=== PATIENT | male | born 1950 | race Caucasian/White ===

== ENCOUNTER 2018-07-27 06:47 | Emergency (ER) | payer OTHER ==
[2018-07-27 07:05] VITALS: BP 126/86; TEMP 97.1; BMI 28.5
[2018-07-27] MEDS ORDERED: DUONEB NEB STA (07:06)
[2018-07-27] MEDS ORDERED: SODIUM CHLORIDE 1,000 ML IV STA (07:21)
--- NOTE | 2018-07-27 08:10 | CT ---
EXAM: CT BRAIN HISTORY: Altered mental status TECHNIQUE: CT brain without intravenous contrast. 5-mm axial sections with Reformations. COMPARISON: None FINDINGS: There is mild generalized atrophy. There is at least mild periventricular and deep white matter low attenuation which although nonspecific is suggestive of chronic microvascular ischemic change. Brain otherwise is unremarkable without evidence of hemorrhage or large vessel distribution recent is chemic infarction. There is no suggestion of acute hydrocephalus or subdural fluid collection. No m ass or mass effect. Cranium has no acute finding. Mastoid processes are aerated. The visualized paranasal sinuses are clear. IMPRESSION: No acute intracranial process.
--- NOTE | 2018-07-27 08:24 | CT ---
EXAM: CT THORAX HISTORY: Shortness of breath and mental status change. TECHNIQUE: CT thorax without intravenous contrast. Multiplanar images presented. COMPARISON: None FINDINGS: Heart size is normal. Trace pericardial effusion. Mild to moderate atherosclerosis. Limited evalua tion of the mediastinum and hilar structures without the administration of intravenous contrast agent . Scattered mediastinal lymph nodes are present, some which are calcified. Soft tissue abundance in the right hilum probably representing prominent regional lymph nodes although cannot completely excl ude a neoplasm at this level. Moderate bilateral pleural effusions are present with adjacent consolidations which may represent ate lectasis or pneumonia. There is thickening of the left lateral pleura up to 3 cm which is concerning for neoplasia although a complex loculation of the pleural fluid could appear similar. There is a m oderate amount of interstitial thickening and apparent infiltrate in the right perihilar lung. Proba ble pulmonary vascular congestion. No pneumothorax. The bones are demineralized. Ankylosis of the thoracic spine is noted. Incidental note of calcifica tion within the left kidney suggesting nephrolithiasis, largest identified at 9 mm. IMPRESSION: 1. Moderate volume bilateral pleural effusions. Consolidations adjacent to the pleural fluid may re present pneumonia or atelectasis. Right perihilar infiltrate/pneumonia. Mild pulmonary vascular con gestion. 2. There is suspicion of a pleural-based mass along the lateral left lung versus complex loculation of the pleural fluid. Probable right perihilar lymphadenopathy. 3. Exam is limited without including enhanced images. Consider follow-up.
--- NOTE | 2018-07-27 08:29 | ED.PDOC ---
General ED Provider: Dr. ANMOL BERRY Chief Complaint: Altered Mental Status Stated Complaint: altered mental status Time Seen by Physician: 07:00 Mode of Arrival: Ambulance Information Source: Family, EMT Exam Limitations: No limitations Nursing and Triage Documentation Reviewed and Agree: Yes Does patient meet sepsis criteria?: Yes If yes, has appropriate treatment been initiated?: Yes System Inflammatory Response Syndrome: Acutely Altered Mental Status Sepsis Protocol: For patient's 13 years and over: Temp is 96.8 and below OR 101 and greater Pulse >90 BPM Resp >20/minute Acutely Altered Mental Status Are patient's symptoms suggestive of a new infection, such as: -Pneumonia -Skin, Soft Tissue -Endocarditis -UTI -Bone, Joint Infection -Implantable Device -Acute Abdominal Infection -Wound Infection -Meningitis -Blood Stream Catheter Infection -Unknown Miscellaneous Complaint Exam - Complex/Multi-System Complaint/Exam Onset/Duration: sometimes during the night said the pt's ex Symptoms Are: Still present Episodes Lasting: Hours (arrived alert arousable unable to move the right arm , altered but alert to self and ex ) Current Severity: Moderate (to severe) Location of Pain: chronic right shoulder pain Associated Signs and Symptoms: Reports: Decreased responsiveness, Confusion. Denies: Agitation, Dizziness, Weakness, Syncope, Headache, Short of air, Cough, Wheezing, Hemoptysis, Chest pain, Palpitations, Edema, Nausea, Vomiting, Diarrhea, Abdominal pain, Back pain, Dysuria, Hematemesis, Melena, Decreased oral intake, Fever, Diaphoresis, Immunocompromised, Anticoagulation Therapy, Recent medication changes, Indwelling medical office technologist, Prior MRSA, Prior VRE, Recent trauma, Remote trauma Recent Echo/LV Function: No Respiratory Distress: Moderate (after nebulizer treatment his o2 sat improved currently 94 % on 4l NC) JVD Present: No Tachypnea Present: No Stridor Present: No Abdominal Findings: Present: Normal findings Glascow Coma Scale (see protocol): GCS about 10 (OPENS EYES ON COMMAND MOVES TOWARDS PAIN SOME WORDS ) Meningeal Signs Positive: No Focal Weakness: Present: RUE Focal Sensory Loss: Present: Right facial Gait: Unable Gag Reflex Present: Yes Babinski Sign: Negative Right, Negative Left Skin Findings: Present: Normal findings Joint Swelling Present: No In-Dwelling Device Present: No Differential Diagnosis: Cardiac Ischemia (ACUTE [place]), Metabolic Abnormality Quality Indicators for Cardiac Chest Pain: EKG in 10min. Quality Indicators for AMI: EKG in 10min. Review of Systems - Review Of Systems Constitutional: Reports: Malaise, Weakness, Other (ALTERED ) Eyes: Reports: No symptoms Ears, Nose, Mouth, Throat: Reports: No symptoms Respiratory: Reports: No symptoms Cardiac: Reports: No symptoms GI: Reports: No symptoms : Reports: No symptoms Musculoskeletal: Reports: No symptoms Skin: Reports: No symptoms Neurological: Reports: Cognitive dysfunction (ALTERED GCS 10 ), Other (RIGHT ARM WEAKNESS , FACIAL DROOPING RIGHT). Denies: Depressed, Headache, Numbness Endocrine: Reports: No symptoms Hematologic/Lymphatic: Reports: No symptoms All Other Systems: Reviewed and Negative Past Medical History - Past Medical History Previously Healthy: No Endocrine: Reports: DM 1, Dyslipidemia Cardiovascular: Reports: CAD (PREVIOUSLY REFUSED STENTS ACCORDING TO HIS EX ), CHF Respiratory: Reports: COPD Hematological: Reports: None Gastrointestinal: Reports: Other (FECAL IMPACTION) Genitourinary: Reports: None Neuro/Psych: Reports: None Musculoskeletal: Reports: None Cancer: Reports: None - Surgical History General Surgical History: Reports: None - Family History Family History: Reports: None - Social History Smoking Status: Former smoker Hx Substance Use: No Alcohol Screening: None - Immunizations Tetanus Shot up to Date: Yes Physical Exam - Physical Exam Appearance: Ill-appearing Ill-appearing: Severe Pain Distress: Mild Eyes: SUSANA, EOMI, Conjunctiva clear ENT: Dry mucosa Respiratory: Airway patent, Breath sounds clear, Breath sounds equal, Respirations nonlabored Cardiovascular: RRR, Pulses normal, No rub, No murmur GI/: Soft, Nontender, No masses, Bowel sounds normal, No Organomegaly Musculoskeletal: Normal strength, ROM intact, No edema, No calf tenderness Skin: Warm, Dry, Normal color Neurological: Disoriented, Focal Deficit (RUE ) Psychiatric: Affect appropriate, Mood appropriate Interpretation - Radiology Interpretation Radiology Interpretation By: Radiologist Radiology Results: Positive (PERIHILAR PNEUMONIA) Exam Interpreted: CT Scan Re-Evaluation - Re-Evaluation Time of Re-Evaluation: 08:00 Status: Unchanged (no movement involving right arms and leg GCS ABOUT 10 ) Lungs: Other (RONCHI) Skin: Warm and Dry Neuro: Other (SEE ABOVE) - Re-Evaluation Time of Re-Evaluation: 08:59 (TASIA HIS SON AND HIS FIRSTEX DECEIDED PT SHOULD NOT BE INTUBATED PRESENT ALLISON AND AXEL WE SPOKE ON THE EX PHONE TASIA ON THE SPEAKER NURSES WERE PRESENT AT ALL TIMES ) Status: Unchanged Physician Notification - Case Discussed Physician Notified: Byron Time of Notification: 08:58 (accepted for transfer ) Physician Notified: minoo Time of Notification: 08:58 (neurologist also accepted the pt) Critical Care Note - Critical Care Note Total Time (mins): 120 Course - Course Hematology/Chemistry: 07/27/18 07:24 07/27/18 07:24 Orders, Labs, Meds: Lab Review 07/27/18 07/27/18 07/27/18 07:05 07:24 07:24 WBC 10.34 H RBC 5.13 Hgb 13.8 L Hct 41.2 L MCV 80.3 MCH 26.9 L MCHC 33.5 RDW Coeff of Debby 14.3 Plt Count 186 Immature Gran % (Auto) 0.3 Neut % (Auto) 75.8 Lymph % (Auto) 14.8 [place] % (Auto) 7.0 Eos % (Auto) 1.4 Baso % (Auto) 0.7 Immature Gran # (Auto) 0.0 Neut # (Auto) 7.9 H Lymph # (Auto) 1.5 [place] # (Auto) 0.7 Eos # (Auto) 0.1 Baso # (Auto) 0.1 PT 10.0 INR 1.00 APTT 25.5 Puncture Site R rad O2 Saturation 93.0 L ABG pH 7.41 ABG pCO2 29.0 L ABG pO2 64.0 L ABG HCO3 18.4 L ABG Total CO2 19 L ABG Base Excess -6 L Josesito Test + O2 Delivery Device Nc Oxygen Liter Flow 4.00 FiO2 % 36.0 Sodium Potassium Chloride Carbon Dioxide Anion Gap BUN Creatinine Estimated GFR (MDRD) BUN/Creatinine Ratio Glucose Lactic Acid Calcium Total Bilirubin AST ALT Alkaline Phosphatase Total Creatine Kinase Troponin I Total Protein Albumin Globulin Albumin/Globulin Ratio Procalcitonin 07/27/18 07/27/18 07/27/18 07:24 07:24 07:24 WBC RBC Hgb Hct MCV MCH MCHC RDW Coeff of Debby Plt Count Immature Gran % (Auto) Neut % (Auto) Lymph % (Auto) [place] % (Auto) Eos % (Auto) Baso % (Auto) Immature Gran # (Auto) Neut # (Auto) Lymph # (Auto) [place] # (Auto) Eos # (Auto) Baso # (Auto) PT INR APTT Puncture Site O2 Saturation ABG pH ABG pCO2 ABG pO2 ABG HCO3 ABG Total CO2 ABG Base Excess Josesito Test O2 Delivery Device Oxygen Liter Flow FiO2 % Sodium 136.8 Potassium 3.99 Chloride 100.3 Carbon Dioxide 23.0 Anion Gap 17.49 BUN 29.9 H Creatinine 1.17 H Estimated GFR (MDRD) 62.00 BUN/Creatinine Ratio 25.55 Glucose 315.6 H Lactic Acid 2.23 H Calcium 8.78 Total Bilirubin 0.73 AST 28.1 ALT 23.6 Alkaline Phosphatase 90.5 Total Creatine Kinase 110.9 Troponin I 2.580 H* Total Protein 6.81 Albumin 3.72 Globulin 3.09 Albumin/Globulin Ratio 1.20 Procalcitonin < 0.05 Orders Category Date Time Status ABG DRAW REQUEST Stat CARDIO 07/27/18 07:05 Ordered EKG-(ED ONLY) Stat CARDIO 07/27/18 07:04 Ordered EKG-(ED ONLY) Stat CARDIO 07/27/18 08:21 Ordered NEBULIZER TREATMENT Stat CARDIO 07/27/18 07:06 Ordered ED IV/MEDIPORT/POWERPORT .ONCE EMERGENCY 07/27/18 07:04 Ordered ABG Stat LAB 07/27/18 07:05 Ordered BLOOD CULTURE (ED ONLY) Stat LAB 07/27/18 07:05 Ordered CBC W/ AUTO DIFF Stat LAB 07/27/18 07:04 Ordered COMPREHENSIVE METABOLIC PANEL Stat LAB 07/27/18 07:04 Ordered CREATINE KINASE Stat LAB 07/27/18 07:04 Ordered LACTIC ACID Stat LAB 07/27/18 07:05 Ordered PARTIAL THROMBOPLASTIN TIME Stat LAB 07/27/18 07:04 Ordered PROCALCITONIN Stat LAB 07/27/18 07:05 Ordered PT WITH INR Stat LAB 07/27/18 07:04 Ordered TROPONIN I Stat LAB 07/27/18 07:04 Ordered URINALYSIS C & S IF INDICATED Stat LAB 07/27/18 07:04 Uncollected 0.9 % Sodium Chloride [Saline Flush] MEDS 07/27/18 07:04 Ordered 1 syr IVF PRN PRN Ipratropium/Albuterol Neb [Duoneb] MEDS 07/27/18 07:06 Stat 1 vial NEB ONCE STA SODIUM CHLORIDE 0.9% @ 100 MLS/HR(1,000ml) MEDS 07/27/18 07:21 Ordered Sodium Chloride 0.9% [Sodium Chloride] 1,000 ml IV 100 mls/hr CT CHEST W/O CONTRAST Stat RADS 07/27/18 07:[address] HEAD W/O CONTRAST Stat RADS 07/27/18 07:05 Ordered Medications Generic Name Dose Route Start Last Admin Trade Name Freq PRN Reason Stop Dose Admin Sodium Chloride 1,000 mls @ 100 mls/hr 07/27/18 07:21 07/27/18 07:42 Sodium Chloride IV 07/27/18 17:20 100 mls/hr .Q10H STA Administration Sodium Chloride 1 syr 07/27/18 07:04 07/27/18 07:40 Saline Flush IVF 1 syr PRN PRN Administration To flush IV Discontinued Medications Generic Name Dose Route Start Last Admin Trade Name Freq PRN Reason Stop Dose Admin Albuterol/Ipratropium 1 vial 07/27/18 07:06 07/27/18 07:19 Duoneb NEB 07/27/18 07:07 1 vial ONCE STA Administration Vital Signs: Temp Pulse Resp BP Pulse Ox 07/27/18 06:48 97.1 F L 107 H 26 H 126/86 96 Departure - Departure Time of Disposition: 09:01 Disposition: TSF SHORT-TRM HOSP Discharge Problem: Altered mental status, Elevated troponin Altered mental state Qualifiers: Altered mental status type: transient alteration of awareness Qualified Code(s) : R40.4 - Transient alteration of awareness Instructions: Altered Mental Status (ED) Condition: Good Pt referred to PMD for follow-up: No (TRANSFERED ) IPMP verified?: No Allergies/Adverse Reactions: Allergies meperidine HCl [From Demerol] Adverse Reaction (Unverified 03/17/13 05:22) Home Medications: Ambulatory Orders Carvedilol 0.5 tab PO BID 03/17/13 Clopidogrel Bisulfate [Clopidogrel] 75 mg PO DAILY 03/17/13 Furosemide [Lasix Tab] 20 mg PO DAILY 03/17/13 Ibuprofen 800 mg PO BID PRN 03/17/13 Metformin HCl [Glucophage] 500 mg PO BIDWM 03/17/13 Hum Insulin NPH/Reg Insulin Hm [Novolin 70-30 Insulin] 45 unit SQ DAILY Atorvastatin Calcium 40 mg PO DAILY 07/27/18 Insulin NPH Hum/Reg Insulin Hm [Novolin 70-30 100 Unit/ml Vial] 25 unit SQ BEDTIME 07/27/18
[2018-07-27] MEDS ORDERED: ROCEPHIN 2 GM in SODIUM CHLORIDE 50 ML IV STA (08:34)
[2018-07-27] MEDS ORDERED: ROCEPHIN ONE (09:08)
== END 2018-07-27 10:05 | disposition short-term general hospital (02) ==
LOC: ED 06:47
DX: R41.82 Altered mental status, unspecified (principal); R40.4 Transient alteration of awareness; R79.89 Other specified abnormal findings of blood chemistry; E10.9 Type 1 diabetes mellitus without complications; E78.5 Hyperlipidemia, unspecified; I25.10 Atherosclerotic heart disease of native coronary artery without angina pectoris; R53.1 Weakness; R47.9 Unspecified speech disturbances; R29.810 Facial weakness; J44.9 Chronic obstructive pulmonary disease, unspecified; R06.02 Shortness of breath; M25.511 Pain in right shoulder; G89.29 Other chronic pain; I25.2 Old myocardial infarction; Z79.4 Long term (current) use of insulin; Z79.899 Other long term (current) drug therapy; R40.2422 Glasgow coma scale score 9-12, at arrival to emergency department; Z89.612 Acquired absence of left leg above knee; Z89.611 Acquired absence of right leg above knee
CPT/HCPCS: 36415; 80053; 82550; 82803; 83605; 84145; 84484; 85025; 85610; 85730; 87040; 93005; 93010; 94640; 96361; 96365; 99285